=== PATIENT | female | born 1940 | race Caucasian/White ===

== ENCOUNTER 2016-06-27 18:12 | Emergency (ER) | payer OTHER ==
[~2016-06-27] VITALS: Ht 157.5 cm; Wt 63.5 kg
[2016-06-27 19:07] VITALS: BP 119/55
--- NOTE | 2016-06-27 20:14 | NUR ---
PATIENT LEFT WITHOUT BEING SEEN BY DR. ATKINSON. NO FURTHER CARE PROVIDED FOR PATIENT.
== END 2016-06-27 20:14 | disposition left against medical advice (07) ==
LOC: MED 18:20
DX: R69 Illness, unspecified (principal); Z53.21 Procedure and treatment not carried out due to patient leaving prior to being seen by health care provider